=== PATIENT | male | born 1960 | race Caucasian/White ===

== ENCOUNTER 2020-05-08 12:59 | Emergency (ER) | payer SELFPAY ==
[~2020-05-08] VITALS: Ht 160 cm; Wt 54.4 kg
[2020-05-08 13:16] VITALS: BP 141/81
[2020-05-08] MEDS ORDERED: TDAP [DIPH/PERTUSSIS/TET] 0.5 ML VIAL IM ONE (13:50)
[2020-05-08] MEDS: TDAP [DIPH/PERTUSSIS/TET] 0.5 ML VIAL IM ONE (13:59)
[2020-05-08] MEDS: LIDOCAINE 1% INJ 50 ML MDV IJ ONE (14:34)
[2020-05-08] MEDS: BACITRACIN ZINC OINT PACKET 1 EA PACKET TP ONE (14:34)
[2020-05-08] MEDS ORDERED: IBUPROFEN 600 MG TABLET ONE (14:35)
[2020-05-08] MEDS: IBUPROFEN 600 MG TABLET PO ONE (14:37)
== END 2020-05-08 14:44 | disposition home or self-care (01) ==
LOC: ER 13:08
DX: S61.213A Laceration without foreign body of left middle finger without damage to nail, initial encounter (principal); W26.8XXA Contact with other sharp object(s), not elsewhere classified, initial encounter; Y93.89 Activity, other specified; Y92.89 Other specified places as the place of occurrence of the external cause; Y99.8 Other external cause status
CPT/HCPCS: 73130-TC; 90715